=== PATIENT | female | born 1980 | race Two or more races ===

== ENCOUNTER 2024-08-20 11:15 | Observation (INO) | payer MEDICAID ==
[2024-08-20 13:39] LABS: Urine Bacteria None Seen /hpf (None Seen); Urine WBC None Seen /hpf (0 - 5)
[2024-08-20 14:09] LABS: Basophils # (auto) 0 10 ^3/uL (0-0.2); Basophils % (auto) 0.4 % (0.0-2.0); Eosinophils # (auto) 0 10 ^3/uL (0-0.8); Eosinophils % (auto) 0.5 % (0.0-7.0); Hematocrit 34.6 % (36.0-46.0); Hemoglobin 11.9 g/dL (12.2-16.2); Lymphocytes % (auto) 23.4 % (10.0-50.0); Mean Corpuscular Hemoglobin 30.7 pg (28.0-32.0); Mean Corpuscular Hgb Conc. 34.3 g/dL (32.0-36.0); Mean Corpuscular Volume 89.6 fL (80.0-100.0); Monocytes # (auto) 0.7 10 ^3/uL (0-1.3); Monocytes % (auto) 7.7 % (0.0-12.0); Neutrophils # (auto) 5.7 10 ^3/uL (1.6-8.6); Platelet Count (auto) 260 10^3/uL (140-450); Red Blood Cells 3.87 10^6/uL (4.0-5.20); Red Cell Distribution Width 12.9 % (11.8-14.3); White Blood Cell 8.5 10^3/uL (4.4-10.8)
[2024-08-20 14:26] LABS: Protein, Urine 74.4 mg/dL (1-14)
[2024-08-20 14:29] LABS: Urine Blood Negative /uL (Negative); Urine Clarity Turbid (Clear); Urine Color Yellow (Yellow); Urine Mucus FEW (None Seen); Urine Protein, UAD 1+ (Negative); Urine Specific Gravity 1.035 (1.001-1.035); Urine Urobilinogen 2 mg/dL (Negative)
[2024-08-20 14:31] LABS: Alanine Aminotransferase 11 U/L (7-40); Albumin 3.8 g/dL (3.2-4.8); Alkaline Phosphatase 80 U/L (46-116); Anion Gap 7 (5-15); Aspartate Aminotransferase 15 U/L (13-40); Bilirubin, Total 0.3 mg/dL (0.2-1.0); Calcium 9.6 mg/dL (8.7-10.4); Carbon Dioxide 25 mmol/L (20-31); Chloride 105 mmol/L (98-107); Glucose 79 mg/dL (74-106); Potassium 4.1 mmol/L (3.5-5.1); Sodium 137 mmol/L (136-145); Total Protein 6.2 g/dL (5.7-8.2)
[2024-08-20 14:37] LABS: BUN/Creatinine Ratio 25.5 (10.0-20.0); Blood Urea Nitrogen 14 mg/dL (9-23)
[2024-08-20 14:37] LABS: Creatinine, Urine 242.99 mg/dL (30.0-125.0); Urine Protein/Creatinine Ratio 0.31
[2024-08-20 14:48] LABS: Uric Acid 5.7 mg/dL (3.1-7.8)
[2024-08-20 14:53] LABS: INR 0.93 (0.9-1.15); Partial Thromboplastin Time 25.9 SEC (24.5-34.5); Prothrombin Time 9.9 sec (9.3-11.8)
[2024-08-20] MEDS ORDERED: PREN1TAB71 OR (15:50)
[2024-08-20] MEDS ORDERED: ASPI-543 PO (15:51)
== END 2024-08-20 16:10 | disposition home or self-care (01) ==
LOC: UNDOADMOB 11:15 → LDRP 11:15
PROVIDERS: ADMIT Obstetrics & Gynecology; ATTEND Obstetrics & Gynecology
DX: O13.3 Gestational [pregnancy-induced] hypertension without significant proteinuria, third trimester (principal); Z3A.32 32 weeks gestation of pregnancy
CPT/HCPCS: 36415; 59025; 76818; 80053; 81001; 81002; 82570; 84156; 84550; 85025; 85610; 85730; 94760; G0378

== ENCOUNTER 2024-08-22 07:58 | Observation (INO) | payer MEDICAID ==
[~2024-08-22 07:58] MED LIST: ASPI-543 PO; PREN1TAB71 OR
[2024-08-22 08:54] LABS: Urine Bacteria FEW /hpf (None Seen); Urine Blood 1+ /uL (Negative); Urine Clarity Cloudy (Clear); Urine Color Yellow (Yellow); Urine Mucus FEW (None Seen); Urine Protein, UAD 1+ (Negative); Urine Specific Gravity 1.025 (1.001-1.035); Urine Urobilinogen Normal (Negative); Urine WBC 4 /hpf (0 - 5); Urine pH 5.5 (5.0-9.0)
[2024-08-22 09:10] LABS: Protein, Urine 11.8 mg/dL (1-14)
[2024-08-22 09:39] LABS: Protein, Urine 57.2 mg/dL (1-14)
[2024-08-22 09:50] LABS: Creatinine, Urine 253.82 mg/dL (30.0-125.0); Urine Protein/Creatinine Ratio 0.23
[2024-08-22 10:11] LABS: 24 Hr. Total Protein, Urine 306.8 mg/24 Hr (<149.1)
== END 2024-08-22 11:37 | disposition home or self-care (01) ==
LOC: LDRP 07:58
PROVIDERS: ADMIT Obstetrics & Gynecology; ATTEND Obstetrics & Gynecology
DX: O14.03 Mild to moderate pre-eclampsia, third trimester (principal); Z3A.32 32 weeks gestation of pregnancy
CPT/HCPCS: 59025; 81001; 81002; 82570; 84156; 94760; G0378

== ENCOUNTER 2024-08-26 08:40 | Inpatient (IN) | payer MEDICAID ==
[~2024-08-26] VITALS: Ht 154.9 cm; Wt 96.6 kg
[2024-08-26 10:39] LABS: Basophils # (auto) 0 10 ^3/uL (0-0.2); Basophils % (auto) 0.5 % (0.0-2.0); Eosinophils # (auto) 0.1 10 ^3/uL (0-0.8); Eosinophils % (auto) 0.8 % (0.0-7.0); Hematocrit 34.4 % (36.0-46.0); Hemoglobin 11.6 g/dL (12.2-16.2); Lymphocytes # (auto) 1.8 10 ^3/uL (0.4-5.4); Lymphocytes % (auto) 26.1 % (10.0-50.0); Mean Corpuscular Hemoglobin 30.4 pg (28.0-32.0); Mean Corpuscular Hgb Conc. 33.8 g/dL (32.0-36.0); Monocytes # (auto) 0.6 10 ^3/uL (0-1.3); Monocytes % (auto) 8.7 % (0.0-12.0); Neutrophils # (auto) 4.3 10 ^3/uL (1.6-8.6); Neutrophils % (auto) 63.9 % (37.0-80.0); Platelet Count (auto) 229 10^3/uL (140-450); Red Blood Cells 3.82 10^6/uL (4.0-5.20); Red Cell Distribution Width 13.3 % (11.8-14.3); White Blood Cell 6.7 10^3/uL (4.4-10.8)
[2024-08-26 10:53] LABS: Alanine Aminotransferase 11 U/L (7-40); Albumin 3.6 g/dL (3.2-4.8); Alkaline Phosphatase 80 U/L (46-116); Anion Gap 5 (5-15); Aspartate Aminotransferase 16 U/L (13-40); BUN/Creatinine Ratio 19.6 (10.0-20.0); Bilirubin, Total 0.3 mg/dL (0.2-1.0); Blood Urea Nitrogen 11 mg/dL (9-23); Carbon Dioxide 25 mmol/L (20-31); Chloride 107 mmol/L (98-107); Glucose 76 mg/dL (74-106); Potassium 4.4 mmol/L (3.5-5.1); Sodium 137 mmol/L (136-145); Uric Acid 6.3 mg/dL (3.1-7.8)
[2024-08-26 10:58] LABS: INR 0.93 (0.9-1.15); Partial Thromboplastin Time 25.6 SEC (24.5-34.5); Prothrombin Time 9.9 sec (9.3-11.8)
[2024-08-26 11:09] LABS: Urine Bacteria None Seen /hpf (None Seen)
[2024-08-26 11:21] LABS: Urine Blood Negative /uL (Negative); Urine Clarity Turbid (Clear); Urine Color Yellow (Yellow); Urine Protein, UAD 2+ (Negative); Urine Specific Gravity 1.016 (1.001-1.035); Urine Urobilinogen Normal (Negative); Urine WBC 1 /hpf (0 - 5); Urine pH 6.5 (5.0-9.0)
[2024-08-26 11:29] LABS: Creatinine, Urine 106.24 mg/dL (30.0-125.0); Protein, Urine 138.2 mg/dL (1-14); Urine Protein/Creatinine Ratio 1.3
[2024-08-26] MEDS ORDERED: LABETALOL HCL 200 MG TAB PO ONE (11:45)
[2024-08-26] MEDS ORDERED: LABETALOL HCL 200 MG TAB ONE (11:54)
[2024-08-26] MEDS ORDERED: hydrALAZINE HCL 20 MG/ML VL ONE (11:58)
[2024-08-26] MEDS ORDERED: BETAMETHASONE ACET (30mg/5ml) 5ml Vial 6mg/ml ONE (12:01)
[2024-08-26] MEDS: hydrALAZINE HCL 20 MG/ML VL IV ONE ×2 (12:18→12:54)
[2024-08-26] MEDS: BETAMETHASONE ACET (30mg/5ml) 5ml Vial 6mg/ml IM SCH (12:36)
== END 2024-08-26 13:20 | disposition short-term general hospital (02) | DRG 566 ==
LOC: LDRP 08:40 → OBSVTOIN 12:05
PROVIDERS: ADMIT Obstetrics & Gynecology; ATTEND Obstetrics & Gynecology
DX: O14.93 Unspecified pre-eclampsia, third trimester (principal); Z3A.33 33 weeks gestation of pregnancy
CPT/HCPCS: 36415; 59025; 76818; 80053; 81001; 81002; 82570; 84156; 84550; 85025; 85610; 85730; 94760; 96372; 96374; 96375; G0378